=== PATIENT | female | born 1970 | race Caucasian/White ===

== ENCOUNTER 2016-12-29 14:15 | Emergency (ER) | payer OTHER ==
[~2016-12-29] VITALS: Ht 175.3 cm; Wt 100.0 kg
[~2016-12-29 14:15] MED LIST: EFFEXOR 3737.5 MG/TA PO; LIPITOR20 MG PO; PRILOSEC 20MG20 MG PO; ROBAXIN 50500 MG/TAB PO; ULTRAM 50MG TAB50 MG PO
[2016-12-29 14:16] VITALS: TEMP 98.7
[2016-12-29 14:57] LABS: BASO % 0.3 % (0.0-2.0); EOS # 0.1 (0.0-0.7); EOS % 0.4 % (0-4.0); GRAN # 12.4 (1.4-6.5); GRAN % 89.4 % (42.2-75.2); HEMATOCRIT 49.4 % (37.0-47.0); HEMOGLOBIN 16.1 g/dl (12.5-16.0); LYMPH % 7.2 % (20.0-51.0); MEAN CELL VOLUME 88 fl (80.0-100.0); MEAN CORPUSCULAR HEMOGLOBIN 29 pg (27.0-31.0); MEAN CORPUSCULAR HGB CONC 33 g/dl (33.0-37.0); MEAN PLATELET VOLUME 11.3 fl (7.4-10.4); MONO # 0.3 (0.1-0.6); MONO % 2.2 % (1.7-9.3); PLATELET COUNT 183 K/mm3 (130-400); RED BLOOD COUNT 5.62 M/mm3 (4.10-5.30); REDCELL DISTRIBUTION WIDTH-CV 13.9 % (11.5-14.5); WHITE BLOOD COUNT 13.8 K/mm3 (4.8-10.8)
[2016-12-29 15:00] LABS: ADJUSTED CALCIUM 9.2 mg/dL (8.4-10.2); ALANINE AMINOTRANSFERASE 35 U/L (9-52); ALKALINE PHOSPHATASE 155 U/L (50-136); ANION GAP 16 mmol/L (7-16); BILIRUBIN,TOTAL 0.8 mg/dL (0.0-1.0); BLOOD UREA NITROGEN 12 mg/dL (7-17); C-REACTIVE PROTEIN 1.2 mg/dL (0.0-0.9); CALCIUM 9.2 mg/dL (8.4-10.2); CARBON DIOXIDE 15 mmol/L (22-30); CHLORIDE 108 mmol/L (98-107); CREATININE, serum 0.81 mg/dL (0.52-1.25); GLUCOSE 156 mg/dL (74-106); LIPASE 78 U/L (23-300); POTASSIUM 3.9 mmol/L (3.4-5.0); SODIUM 139 mmol/L (137-145); TOTAL PROTEIN 8.1 gm/dL (6.4-8.2)
[2016-12-29 15:20] LABS: PH 5 (5-8); SQUAMOUS EPITHELIAL 0-2 /hpf; URINE APPEARANCE Clear; URINE BACTERIA None Seen /hpf; URINE BILIRUBIN Negative (NEGATIVE); URINE BLOOD Negative (NEGATIVE); URINE COLOR Yellow; URINE GLUCOSE Negative (NEGATIVE); URINE KETONE Negative (NEGATIVE); URINE RBC 0-2 /hpf; URINE UROBILINOGEN Negative (NEGATIVE); URINE WBC 0-2 /hpf
[2016-12-29 15:33] LABS: TROPONIN-I < 0.012 ng/mL (0.000-0.034)
[2016-12-29] MEDS ORDERED: NORCO 325 MG-7.1 TAB PO (15:55)
[2016-12-29] MEDS ORDERED: ZOFRAN 4MG T4 MG/TAB PO (15:55)
[2016-12-29] MEDS ORDERED: NORCO 325 MG-51 TAB PO (15:55)
[2016-12-29] MEDS ORDERED: PREMARIN .3MG0.3 MG PO (15:59)
[2016-12-29 16:50] VITALS: BP 121/74; PULSE 106
== END 2016-12-29 16:54 | disposition home or self-care (01) ==
LOC: COL.ER 14:15
PROVIDERS: Emergency Medicine
DX: R10.31 Right lower quadrant pain (principal); R10.11 Right upper quadrant pain; R11.10 Vomiting, unspecified; R19.7 Diarrhea, unspecified; R00.0 Tachycardia, unspecified
CPT/HCPCS: J1170; J2405; J7030; Q9967

== ENCOUNTER 2017-03-14 05:18 | Emergency (ER) | payer OTHER ==
[~2017-03-14] VITALS: Ht 175.3 cm; Wt 100.0 kg
[~2017-03-14 05:18] MED LIST changes: +NORCO 325 MG-51 TAB PO; +NORCO 325 MG-7.1 TAB PO; +PREMARIN .3MG0.3 MG PO; +ZOFRAN 4MG T4 MG/TAB PO
[2017-03-14 05:23] VITALS: TEMP 97.6
[2017-03-14] MEDS ORDERED: FLONASEALLERGY NS (05:56)
[2017-03-14] MEDS ORDERED: PRILOSEC 20MG20 MG PO (05:57)
[2017-03-14] MEDS ORDERED: EFFEXOR 75M75 MG/TAB PO ×2 (05:59→07:07)
[2017-03-14] MEDS ORDERED: ZOFRAN8 MG PO (06:00)
[2017-03-14] MEDS ORDERED: IMITREX 25MG TA25 MG PO (06:54)
[2017-03-14] MEDS ORDERED: TOPAMAX 100MG100 M1 PO (06:55)
[2017-03-14 07:41] VITALS: BP 116/81; PULSE 69
== END 2017-03-14 07:41 | disposition home or self-care (01) ==
LOC: COL.ER 05:18
DX: R51 Headache (principal); G43.909 Migraine, unspecified, not intractable, without status migrainosus; F17.210 Nicotine dependence, cigarettes, uncomplicated; F32.9 Major depressive disorder, single episode, unspecified
CPT/HCPCS: J1100; J1110; J1200; J1630; J1885; J2405; J2550; J2765; J7030

== ENCOUNTER 2017-05-02 19:17 | Emergency (ER) | payer OTHER ==
[~2017-05-02] VITALS: Ht 175.3 cm; Wt 100.0 kg
[~2017-05-02 19:17] MED LIST changes: +EFFEXOR 75M75 MG/TAB PO; +FLONASEALLERGY NS; +IMITREX 25MG TA25 MG PO; +TOPAMAX 100MG100 M1 PO; +ZOFRAN8 MG PO
[2017-05-02 19:25] VITALS: TEMP 98.1
[2017-05-02 22:15] VITALS: BP 111/71; PULSE 83
== END 2017-05-02 22:17 | disposition home or self-care (01) ==
LOC: COL.ER 19:17
DX: G43.909 Migraine, unspecified, not intractable, without status migrainosus (principal); F32.9 Major depressive disorder, single episode, unspecified; F17.210 Nicotine dependence, cigarettes, uncomplicated; Z90.49 Acquired absence of other specified parts of digestive tract
CPT/HCPCS: J1885; J2550; J7030

== ENCOUNTER 2017-05-05 15:12 | Emergency (ER) | payer OTHER ==
[~2017-05-05] VITALS: Ht 175.3 cm; Wt 100.0 kg
[2017-05-05 15:16] VITALS: TEMP 97.9
[2017-05-05 17:29] VITALS: BP 142/81; PULSE 74
== END 2017-05-05 17:30 | disposition home or self-care (01) ==
LOC: COL.ER 15:12
DX: G43.909 Migraine, unspecified, not intractable, without status migrainosus (principal); F17.200 Nicotine dependence, unspecified, uncomplicated
CPT/HCPCS: J1885; J2405; J3360; J7030

== ENCOUNTER 2017-05-11 16:32 | Emergency (ER) | payer OTHER ==
[~2017-05-11] VITALS: Ht 175.3 cm; Wt 100.0 kg
[2017-05-11 16:34] VITALS: BP 137/74; TEMP 98.2
[2017-05-11 17:50] VITALS: PULSE 90
[2017-05-11] MEDS ORDERED: CEPHALEXIN500 M1 PO (17:51)
== END 2017-05-11 18:03 | disposition home or self-care (01) ==
LOC: COL.ER 16:32
DX: I80.8 Phlebitis and thrombophlebitis of other sites (principal); G43.909 Migraine, unspecified, not intractable, without status migrainosus; F32.9 Major depressive disorder, single episode, unspecified; F17.210 Nicotine dependence, cigarettes, uncomplicated; Z90.710 Acquired absence of both cervix and uterus; Z90.49 Acquired absence of other specified parts of digestive tract; Z98.51 Tubal ligation status; Z98.890 Other specified postprocedural states

== ENCOUNTER 2017-07-29 15:34 | Emergency (ER) | payer OTHER ==
[~2017-07-29] VITALS: Ht 175.3 cm; Wt 102.3 kg
[~2017-07-29 15:34] MED LIST changes: +CEPHALEXIN500 M1 PO
[2017-07-29 15:38] VITALS: BP 142/76; TEMP 97.7
[2017-07-29 17:10] VITALS: PULSE 88
== END 2017-07-29 17:11 | disposition home or self-care (01) ==
LOC: COL.ER 15:34
DX: G43.909 Migraine, unspecified, not intractable, without status migrainosus (principal); K21.9 Gastro-esophageal reflux disease without esophagitis; F17.210 Nicotine dependence, cigarettes, uncomplicated
CPT/HCPCS: J0595; J1200; J2550

== ENCOUNTER 2017-10-28 22:53 | Emergency (ER) | payer OTHER ==
[~2017-10-28] VITALS: Ht 175.3 cm; Wt 102.3 kg
[2017-10-28 22:57] VITALS: BP 137/76; TEMP 97.4
[2017-10-28] MEDS ORDERED: NORCO 325 MG-101 TAB PO (23:39)
[2017-10-29 00:10] VITALS: PULSE 75
== END 2017-10-29 00:10 | disposition home or self-care (01) ==
LOC: COL.ER 22:53
DX: M62.830 Muscle spasm of back (principal); G89.29 Other chronic pain; F17.210 Nicotine dependence, cigarettes, uncomplicated
CPT/HCPCS: J1170

== ENCOUNTER 2017-11-25 18:05 | Emergency (ER) | payer OTHER ==
[~2017-11-25] VITALS: Ht 175.3 cm; Wt 103.2 kg
[~2017-11-25 18:05] MED LIST changes: +NORCO 325 MG-101 TAB PO
[2017-11-25 18:11] VITALS: BP 123/81; TEMP 97.6
[2017-11-25 18:57] LABS: COLLECTION METHOD CLEAN CATCH
[2017-11-25 19:34] LABS: PH 6 (5-8); URINE APPEARANCE Hazy; URINE BILIRUBIN Negative (NEGATIVE); URINE BLOOD Negative (NEGATIVE); URINE COLOR Yellow; URINE GLUCOSE Negative (NEGATIVE); URINE KETONE Negative (NEGATIVE); URINE LEUKOCYTE ESTERASE Negative (NEGATIVE); URINE NITRATE Negative (NEGATIVE); URINE PROTEIN(semi-quant) Negative (NEGATIVE); URINE UROBILINOGEN Negative (NEGATIVE)
[2017-11-25 19:50] LABS: URINE RBC 0-2 /hpf
[2017-11-25 19:53] VITALS: PULSE 88
== END 2017-11-25 19:53 | disposition home or self-care (01) ==
LOC: COL.ER 18:05
PROVIDERS: Nurse Practitioner
DX: G89.29 Other chronic pain (principal); M54.9 Dorsalgia, unspecified; G43.909 Migraine, unspecified, not intractable, without status migrainosus; F32.9 Major depressive disorder, single episode, unspecified; F43.10 Post-traumatic stress disorder, unspecified; F17.210 Nicotine dependence, cigarettes, uncomplicated; Z90.49 Acquired absence of other specified parts of digestive tract; Z90.710 Acquired absence of both cervix and uterus
CPT/HCPCS: J1885; J2360

== ENCOUNTER 2017-12-18 22:27 | Emergency (ER) | payer OTHER ==
[~2017-12-18] VITALS: Ht 175.3 cm; Wt 104.1 kg
[~2017-12-18 22:27] MED LIST changes: -PREMARIN .3MG0.3 MG PO; +PREMARIN 0.60.625 M1 PO; -TOPAMAX 100MG100 M1 PO; +TOPAMAX200 MG PO
[2017-12-18 22:28] VITALS: TEMP 98.6
[2017-12-19] MEDS ORDERED: BENTYL 10MG10 MG/CAP PO (01:34)
[2017-12-19] MEDS ORDERED: MINIPRESS 1M1 MG/CAP PO (01:35)
[2017-12-19] MEDS ORDERED: ATARAX 10MG10 MG/TAB PO (01:35)
[2017-12-19 01:36] LABS: PROTHROMBIN TIME 11.1 SECONDS (9.7-12.8)
[2017-12-19] MEDS ORDERED: DESYREL 50MG50 MG PO (01:36)
[2017-12-19] MEDS ORDERED: FLEXERIL 1010 MG/TAB PO (01:37)
[2017-12-19 04:05] VITALS: BP 134/97; PULSE 62
== END 2017-12-19 04:17 | disposition home or self-care (01) ==
LOC: COL.ER 22:27
PROVIDERS: Emergency Medicine
DX: G43.909 Migraine, unspecified, not intractable, without status migrainosus (principal); R07.89 Other chest pain; F17.210 Nicotine dependence, cigarettes, uncomplicated
CPT/HCPCS: J1170; J2270

== ENCOUNTER 2018-04-03 17:17 | Emergency (ER) | payer OTHER ==
[~2018-04-03] VITALS: Ht 175.3 cm; Wt 108.6 kg
[~2018-04-03 17:17] MED LIST changes: +ATARAX 10MG10 MG/TAB PO; +BENTYL 10MG10 MG/CAP PO; +DESYREL 50MG50 MG PO; +FLEXERIL 1010 MG/TAB PO; +MINIPRESS 1M1 MG/CAP PO
[2018-04-03 17:19] VITALS: BP 1258/99; TEMP 98.6
[2018-04-03 18:22] VITALS: PULSE 96
[2018-04-03] MEDS ORDERED: VOLTAREN GEL 1%1 TU TP (18:25)
[2018-04-03] MEDS ORDERED: IMITREX50 MG PO (18:28)
[2018-04-03] MEDS ORDERED: GRALISE300 MG PO (18:30)
== END 2018-04-03 18:20 | disposition home or self-care (01) ==
LOC: COL.ER 17:17
DX: S33.9XXA Sprain of unspecified parts of lumbar spine and pelvis, initial encounter (principal); S80.812A Abrasion, left lower leg, initial encounter; F41.9 Anxiety disorder, unspecified; E78.5 Hyperlipidemia, unspecified; G89.29 Other chronic pain; M25.552 Pain in left hip; Z79.891 Long term (current) use of opiate analgesic; W01.0XXA Fall on same level from slipping, tripping and stumbling without subsequent striking against object, initial encounter; Y93.K1 Activity, walking an animal; Y92.830 Public park as the place of occurrence of the external cause

== ENCOUNTER → 2018-11-12 | Outpatient (CLI) | payer OTHER ==
[~2018-11-12] MED LIST changes: +GRALISE300 MG PO; +IMITREX50 MG PO; +VOLTAREN GEL 1%1 TU TP
== END ==
LOC: MHCPAIN 13:35
DX: G89.29 Other chronic pain (principal); M47.817 Spondylosis without myelopathy or radiculopathy, lumbosacral region; M54.16 Radiculopathy, lumbar region; M53.3 Sacrococcygeal disorders, not elsewhere classified
CPT/HCPCS: G0463

== ENCOUNTER → 2018-11-21 | Outpatient (CLI) | payer OTHER | LOC: COL.PUL 09:40 | DX: Z02.71 Encounter for disability determination (principal); R06.02 Shortness of breath; Z87.891 Personal history of nicotine dependence ==

== ENCOUNTER → 2018-12-24 | Outpatient (CLI) | payer OTHER | LOC: MHCPAIN 12:20 | DX: G89.29 Other chronic pain (principal); M47.817 Spondylosis without myelopathy or radiculopathy, lumbosacral region; M54.16 Radiculopathy, lumbar region; M53.3 Sacrococcygeal disorders, not elsewhere classified; M96.1 Postlaminectomy syndrome, not elsewhere classified | CPT/HCPCS: G0463; J0690 ==

== ENCOUNTER → 2018-12-31 | Outpatient (CLI) | payer OTHER | LOC: MHCPAIN 10:38 | DX: G89.29 Other chronic pain (principal); M47.817 Spondylosis without myelopathy or radiculopathy, lumbosacral region; M54.16 Radiculopathy, lumbar region; M53.3 Sacrococcygeal disorders, not elsewhere classified; M96.1 Postlaminectomy syndrome, not elsewhere classified | CPT/HCPCS: G0463 ==

== ENCOUNTER → 2019-01-23 | Outpatient (CLI) | payer OTHER | LOC: ZCOL.LAB 14:27 | DX: M96.1 Postlaminectomy syndrome, not elsewhere classified (principal) ==

== ENCOUNTER → 2019-02-06 | Outpatient (CLI) | payer OTHER | LOC: COL.RAD 07:30 | DX: M96.1 Postlaminectomy syndrome, not elsewhere classified (principal); M51.26 Other intervertebral disc displacement, lumbar region; M48.061 Spinal stenosis, lumbar region without neurogenic claudication | CPT/HCPCS: A9585 ==

== ENCOUNTER 2019-02-12 08:59 | Inpatient (IN) | payer OTHER ==
[~2019-02-12] VITALS: Ht 175.3 cm; Wt 100.4 kg
[2019-03-26] VITALS (7 sets, daily range): BP systolic 124–138; BP diastolic 70–89; PULSE 87–106; TEMP 97.8–98.8
[2019-03-26] MEDS ORDERED: PERCOCET 325 MG1 TA2 PO (07:37)
[2019-03-26] MEDS ORDERED: GLUCOPHAGE500 MG/TAB PO (07:38)
--- NOTE | 2019-03-26 11:50 | NUR ---
PATIENT BACK IN ROOM 331 POST OP. ORIENTED BUT DROWSY. VSS. RTK DRESSING IS CD&I WITH AQUACEL & ACEWRAP. TEDS TO LLE. SCD'S TO BLE. POSITIVE PEDAL PULSES TO BLE. NO C/O N/V. LIQUIDS AT BEDSIDE. IV FLUIDS INFUSING VIA PUMP INTO LEFT HAND IV. HEAD TO TOE ASSESSMENT WNL. NO FAMILY AT BEDSIDE. PATIENT SLEEPING.
--- NOTE | 2019-03-26 14:54 | NUR ---
BRISEIDA met with the patient to discuss discharge plan. The patient lives alone in [place]. She states that she has a son that lives in [place] and another son (Minor) that lives in [place]. She reports independence with ADLs and has a cane and two walkers. The patient's PCP is Dr. Huizar at [facility] in [place] and she receives her medications from the [facility] in [place] or through the [facility]. She reports no difficulties obtaining her meds. The patient does not have advanced directives, but she states that she is in the process of completing them. The patient plans to return home and receive outpatient therapy at [facility] upon discharge. No additional needs at this time.
--- NOTE | 2019-03-26 19:12 | NUR ---
Report received from NATY Villegas.
[2019-03-27] VITALS: BP 112/50; PULSE 67; TEMP 97.8
--- NOTE | 2019-03-27 02:58 | NUR ---
Patient has stated her pain is not managed with her current treatment and states she wants something stronger. Education provided on current pain medication. She also states she wants a catheter placed because she is frequently up to the restroom. Education provided on the risk of infection d/t catheter placement. Patient currently resting in bed with call light in reach.
[2019-03-27 04:00] VITALS: BP 155/85; PULSE 102; TEMP 98.8
--- NOTE | 2019-03-27 06:25 | NUR ---
Requested PRN flexeril. Provided to patient
[2019-03-27 07:00] LABS: HEMATOCRIT 41.6 % (37.0-47.0); HEMOGLOBIN 12.8 g/dl (12.5-16.0)
--- NOTE | 2019-03-27 07:04 | NUR ---
Report given to NATY Villegas.
[2019-03-27 07:37] VITALS: BP 128/88; PULSE 92; TEMP 98.9
--- NOTE | 2019-03-27 08:00 | NUR ---
PATIENT IS A&O. VSS. RATES PAIN AT 9/10. PATIENT SITTING AT BEDSIDE GETTING READY TO AMBULATE TO BATHROOM. PATIENT INDEPENDENT IN ROOM. GAVE PRN ROXICODONE, THREE TABS PER ORDERS. RTK DRESSING IS CD&I WITH AQUACL & ACEWRAP. POSITIVE PEDAL PULSES TO BLE. PATIENT EAT/DRINK VOIDING SUFFICENT AMOUNTS. NO C/O N/V. RIGHT HAND IV TO INT. HEAD TO TOE ASSESSMENT WNL. SON AT BEDSIDE. CALL LIGHT IN REACH.
--- NOTE | 2019-03-27 11:35 | NUR ---
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 No needs right now.
[2019-03-27 12:18] VITALS: BP 116/79; PULSE 85; TEMP 97.9
[2019-03-27 16:00] VITALS: BP 138/96; PULSE 103; TEMP 98.1
[2019-03-27 20:00] VITALS: BP 137/98; PULSE 101; TEMP 98.3
--- NOTE | 2019-03-27 20:00 | NUR ---
Report received. 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 Assessment complete-WNL. VS stable. C/O pain to Right knee-rating 6/10. To early for roxicodone. Discussed alternatives. Jose hose applied. Aquacell dressing to right knee-C/D/I. Fresh ice pack applied. Elevated on pillow. Noted to have some swelling and brusing to knee. Refused SCDs states she gets up to bathroom frequently. Up in room independently. States she is going home in AM. Denies questions or concerns. Will reassess pain and give lazara when due. WIll monitor.
[2019-03-28] VITALS: BP 135/96; PULSE 97; TEMP 98.4
[2019-03-28 04:00] VITALS: BP 121/76; PULSE 104; TEMP 98.4
--- NOTE | 2019-03-28 04:20 | NUR ---
Turned on bathroom call light. Had black liquid stool accident-very large amount on floor, arriaga, and toilet. States she hadnt had a bowel movement since Monday so took the ordered [place] at . States does not want any more this admission. Will monitor.
[2019-03-28 05:48] LABS: HEMOGLOBIN 11.2 g/dl (12.5-16.0)
[2019-03-28 06:00] LABS: HEMATOCRIT 35.8 % (37.0-47.0)
--- NOTE | 2019-03-28 07:37 | NUR ---
Report from Viviana ALFONSO.
[2019-03-28 08:01] VITALS: BP 125/74; PULSE 96; TEMP 98.6
--- NOTE | 2019-03-28 08:17 | NUR ---
PT UP TO RECLINER FOR BREAKFAST, A/O X3, VSS, DRESSING TO RIGHT KNEE CDI WITH AQUACEL OVER INCISION. TEDS BILATERALLY. PT AND OT TO WORK WITH PATEINT THEN DISCAHRGE LATER THIS AM.
--- NOTE | 2019-03-28 10:10 | NUR ---
DISCHARGE INSTRUCTIONS REVIEWED WITH PATEINT AND FAMILY. VERBALIZED UNDERSTANDING NO QUESTIONS. PT TAKEN BY WHEEL CHAIR TO FRONT.
== END 2019-03-28 10:12 | disposition home or self-care (01) | DRG 470 ==
LOC: JCC 03-26 06:29
PROVIDERS: ADMIT Orthopaedic Surgery Sports Medicine
PROC: 0SRC0J9 Replacement of Right Knee Joint with Synthetic Substitute, Cemented, Open Approach (ICD-10-PCS; principal; 2019-03-26 08:30)
DX: M17.11 Unilateral primary osteoarthritis, right knee (principal); J44.9 Chronic obstructive pulmonary disease, unspecified; E11.9 Type 2 diabetes mellitus without complications; E78.00 Pure hypercholesterolemia, unspecified; Z87.891 Personal history of nicotine dependence
CPT/HCPCS: A9284; C1776; J0690; J1100; J1170; J1885; J2250; J2405; J2704; J3010; J7030

== ENCOUNTER 2019-04-11 17:47 | Emergency (ER) | payer OTHER ==
[~2019-04-11] VITALS: Ht 175.3 cm; Wt 102.3 kg
[~2019-04-11 17:47] MED LIST changes: +GLUCOPHAGE500 MG/TAB PO; +PERCOCET 325 MG1 TA2 PO
[2019-04-11 18:04] VITALS: BP 133/85; PULSE 101; TEMP 98.8
[2019-04-11] MEDS ORDERED: PREDNISONE20 MG PO (18:37)
== END 2019-04-11 19:17 | disposition home or self-care (01) ==
LOC: COL.ER 17:47
DX: L50.9 Urticaria, unspecified (principal); E11.9 Type 2 diabetes mellitus without complications; Z79.84 Long term (current) use of oral hypoglycemic drugs
CPT/HCPCS: J7512